=== PATIENT | male | born 1975 | race Hispanic/Latino ===

== ENCOUNTER 2020-11-04 14:50 | Emergency (ER) | payer BC ==
[~2020-11-04] VITALS: Ht 167.6 cm; Wt 86.2 kg
[2020-11-04 15:15] LABS: BASOPHILS # (AUTO) 0.1 (0.0-0.1); BASOPHILS % 0.5 % (0.0-1.0); EOSINOPHILS # (AUTO) 0.2 (0.0-0.4); EOSINOPHILS % 1.6 % (0.0-6.0); HEMATOCRIT 43.4 % (38.2-49.6); HEMOGLOBIN 15.3 g/dL (14.0-18.0); LYMPHOCYTES # (AUTO) 3.5 (1.0-3.2); LYMPHOCYTES % 28.9 % (18.0-39.1); MEAN CORPUSCULAR HEMOGLOBIN 29.3 pg (28-32); MEAN CORPUSCULAR HGB CONC 35.3 g/dL (31-35); MEAN CORPUSCULAR VOLUME 83.1 fL (81-99); MONOCYTES # (AUTO) 0.8 (0.2-0.8); MONOCYTES % 6.7 % (4.4-11.3); NEUTROPHILS # (AUTO) 7.6 (2.1-6.9); NEUTROPHILS % 61.6 % (38.7-80.0); PLATELET COUNT 348 x10e3/uL (140-360); RED BLOOD COUNT 5.22 x10e6/uL (4.3-5.7); RED CELL DISTRIBUTION WIDTH 11.5 % (11.7-14.4)
[2020-11-04] MEDS ORDERED: ASPIRIN 81 MG CHEW TAB PO ONE (15:15)
[2020-11-04] MEDS ORDERED: AMLODIPINE BESYLATE 10 MG TAB PO ONE (15:15)
[2020-11-04] MEDS ORDERED: LACTATED RINGER'S 1,000 ML INJ ONE (15:15)
[2020-11-04 15:30] LABS: ALBUMIN 3.1 g/dL (3.5-5.0); ALBUMIN/GLOBULIN RATIO 0.7 (0.8-2.0); CALCIUM 9.3 mg/dL (8.4-10.2); CREATININE, SERUM 1.34 mg/dL (0.72-1.25)
[2020-11-04] MEDS ORDERED: METFORMIN HCL 500 MG TAB PO ONE (17:00)
[2020-11-04] MEDS ORDERED: NORVASC10 MG PO (19:03)
[2020-11-04] MEDS ORDERED: METFORMIN HCL500 MG PO (19:03)
[2020-11-04 19:17] VITALS: BP 147/87
== END 2020-11-04 19:20 | disposition home or self-care (01) ==
LOC: ER 14:57
DX: R07.89 Other chest pain (principal); E11.65 Type 2 diabetes mellitus with hyperglycemia; I10 Essential (primary) hypertension; R94.31 Abnormal electrocardiogram [ECG] [EKG]; Z20.822 Contact with and (suspected) exposure to COVID-19
CPT/HCPCS: 36415; 71045; 80053; 82948; 83880; 84484; 85025; 93005; 99283; U0002